=== PATIENT | female | born 1945 | race Caucasian/White ===

== ENCOUNTER 2019-02-15 20:21 | Emergency (ER) | payer MEDICARE ==
[~2019-02-15] VITALS: Ht 160 cm; Wt 81.6 kg
[2019-02-15] MEDS ORDERED: IBUPROFEN 200 MG TAB PO NR (21:16)
[2019-02-15] MEDS ORDERED: ACETAMINOPHEN 325 MG TAB PO NR (21:30)
--- NOTE | 2019-02-15 21:49 | Diagnostic Imaging Report ---
KNEE 2VIEW RT - HOPD - 2 views HISTORY: Pain COMPARISON: None available. FINDINGS: Bones: No acute displaced fracture. Osseous alignment is within normal limits. Joints: The joint spaces are well-maintained. Soft tissues: The soft tissues appear unremarkable. IMPRESSION: No acute fracture or dislocation of the right knee. Signed by: Dr. Manoj Milton MD on 02/15/2019 9:46 PM
[2019-02-15] MEDS ORDERED: NITROGLYCERIN 2% OINT 1 GM PKT TOP ONE (22:00)
--- NOTE | 2019-02-15 22:15 | Diagnostic Imaging Report ---
EXAM: Right Lower Extremity Venous Duplex Ultrasound INDICATION: ^[id number] ^[id number] COMPARISON: None TECHNIQUE: [place] scale, color Doppler and spectral waveform analysis of the right lower extremity deep venous system was performed. FINDINGS: Common Femoral: Fully compressible with normal spontaneous waveforms. Proximal Greater Saphenous: Fully compressible. Femoral: Fully compressible with normal spontaneous waveforms. Normal response to augmentation. Proximal Deep Femoral: Normal spontaneous waveforms. Popliteal: Fully compressible with normal spontaneous waveforms. IMPRESSION: No evidence of deep venous thrombosis above the right calf. Signed by: Dr. Manoj Milton MD on 02/15/2019 10:12 PM
[2019-02-15] MEDS ORDERED: ACETAMINOPHEN 325 MG TAB ONE (22:21)
[2019-02-15] MEDS ORDERED: IBUPROFEN 200 MG TAB ONE (22:21)
== END 2019-02-15 21:35 | disposition home or self-care (01) ==
LOC: FSED 20:21
DX: M25.561 Pain in right knee (principal); M79.661 Pain in right lower leg; R26.2 Difficulty in walking, not elsewhere classified; S86.111A Strain of other muscle(s) and tendon(s) of posterior muscle group at lower leg level, right leg, initial encounter; E11.9 Type 2 diabetes mellitus without complications; I10 Essential (primary) hypertension
CPT/HCPCS: 93971; 99283

== ENCOUNTER → 2022-09-19 | Outpatient (CLI) | payer MEDICARE | LOC: DX 10:51 | PROVIDERS: ATTEND Internal Medicine Gastroenterology | DX: K57.30 Diverticulosis of large intestine without perforation or abscess without bleeding (principal) | CPT/HCPCS: 74280 ==